=== PATIENT | male | born 1980 | race Hispanic/Latino ===

== ENCOUNTER 2016-11-18 05:12 | Inpatient (IN) | payer OTHER ==
[~2016-11-18] VITALS: Ht 172.7 cm; Wt 86.2 kg
[2016-11-18] VITALS (16 sets, daily range): BP systolic 95–134; BP diastolic 63–90
[~2016-11-18 05:12] MED LIST: AMOXICILLIN500 M1 PO; CYANOCOBALAM1000 MCG PO; ERYTHROMYC1 APPLICAT LEFT EYE; FOLIC ACID1 MG PO; MOTRIN800 MG PO; NAPROSYN500 MG PO; PERCOCET 5/31 TABLET PO; PRENATAL VITAM1 EA11 PO; Protonix PO; THERAGRAN1 TABLET PO; Thiamine,Vitamin B1 PO
[2016-11-18 05:54] LABS: BASE EXCESS 4.5 mEq/L (-3 to +3); BICARBONATE 28.4 mEq/L (22-26); CARBOXY HGB 3.9 % (0-5); COMMENTS - BLOOD GASES C+A+; DEVICE ROOM AIR; FI02 21 %; METHEMOGLOBIN 1.1 % (0-1.5); PCO2 39 mm Hg (35-45); PO2 80 mm Hg (80-100); SITE LR; TOTAL RESP RATE 16 resp/min; pH 7.47 (7.35-7.45)
[2016-11-18 05:56] LABS: EOSINOPHIL (%) 1.2 % (0-5); EOSINOPHIL COUNT 0.1 K/uL (0-0.3); IMMATURE GRANULOCYTE (%) 0.2 % (0.0-0.7); IMMATURE GRANULOCYTE COUNT 0.1 K/uL; LYMPHOCYTE COUNT 1.1 K/uL (1.0-2.8); MONOCYTE (%) 6.9 % (3-12); MONOCYTE COUNT 0.3 K/uL (0-0.8); NEUTROPHIL (%) 69.4 % (45-76); NEUTROPHIL COUNT 3.4 K/uL (1.8-6.4)
[2016-11-18 06:04] LABS: CHLORIDE 103 mEq/L (99-109); POTASSIUM 4.4 mEq/L (3.7-5.4); SODIUM 137 mEq/L (136-147)
[2016-11-18 06:07] LABS: GLUCOSE 110 mg/dL (70-99)
[2016-11-18 06:08] LABS: ANION GAP 13 MEQ/L (2-14)
[2016-11-18 06:09] LABS: TOTAL BILIRUBIN 12.2 mg/dL (0.0-1.0)
[2016-11-18 06:10] LABS: ALKALINE PHOSPHATASE 182 IU/L (3-129); SERUM ETHYL ALCOHOL 168 mg/dL
[2016-11-18 06:11] LABS: GFR ESTIMATE (CALCULATED) > 59 mL/min/; INTER. NORMALIZED RATIO 1.8; PTT 42.8 (25-32)
[2016-11-18 06:12] LABS: UREA NITROGEN (BUN) 8 mg/dL (9-23)
[2016-11-18 06:14] LABS: LIPASE 69 U/L (1.0-51.0)
[2016-11-18 06:17] LABS: TROP-I INTERPRETATION NEGATIVE; TROPONIN-I 0.01 ng/mL (0.0-0.30)
[2016-11-18 06:26] LABS: HEMATOCRIT 38.9 % (38.0-50.0); MCH 32.3 PG (29.0-34.0); MCHC 35.7 G/DL (30.0-36.0); MCV 90.5 FL (86-99); RBC DIS.WIDTH-CV 14.8 % (11.8-14.6); RBC DIS.WIDTH-SD 47.5 % (39-53); WHITE BLOOD COUNT 4.9 K/uL (4.1-10.2)
[2016-11-18 06:46] LABS: PLAT.SUFFICIENCY DECREASED
[2016-11-18 06:47] LABS: PLATELET COUNT 28 K/uL (156-360)
[2016-11-18] MEDS ORDERED: PRILOSEC20 MG PO (08:00)
[2016-11-18 08:50] LABS: TROP-I INTERPRETATION NEGATIVE; TROPONIN-I < 0.01 ng/mL (0.0-0.30)
[2016-11-18 19:41] LABS: HEMATOCRIT 39.5 % (38.0-50.0); MCV 92.9 FL (86-99)
[2016-11-19] VITALS (7 sets, daily range): BP systolic 100–128; BP diastolic 60–79
[2016-11-19 06:44] LABS: INTER. NORMALIZED RATIO 1.8; PROTHROMBIN TIME 18.5 (9.2-11.2)
[2016-11-19 06:47] LABS: TROP-I INTERPRETATION NEGATIVE; TROPONIN-I < 0.01 ng/mL (0.0-0.30)
[2016-11-19 06:49] LABS: ALKALINE PHOSPHATASE 108 IU/L (3-129); DIRECT BILIRUBIN 8.7 mg/dL (0.0-0.3); TOTAL BILIRUBIN 16.8 MG/DL (0.0-1.0)
[2016-11-19 06:51] LABS: HEMATOCRIT 35.1 % (38.0-50.0); MCH 33.2 PG (29.0-34.0); MCV 94.9 FL (86-99); RBC DIS.WIDTH-SD 51.7 % (39-53)
[2016-11-19 06:54] LABS: MEAN PLAT.VOLUME 12.7 uM^3 (9.0-12.4)
[2016-11-19 07:12] LABS: PLATELET COUNT 37 K/uL (156-360); WHITE BLOOD COUNT 2.4 K/uL (4.1-10.2)
[2016-11-19 20:16] LABS: HEMATOCRIT 33.6 % (38.0-50.0); MCV 94.6 FL (86-99)
[2016-11-20] VITALS (11 sets, daily range): BP systolic 107–118; BP diastolic 57–70
[2016-11-20 08:35] LABS: HEMATOCRIT 32.1 % (38.0-50.0); MCV 94.1 FL (86-99)
[2016-11-20 08:48] LABS: INTER. NORMALIZED RATIO 1.8; PROTHROMBIN TIME 18.7 (9.2-11.2); PTT 36.9 (25-32)
[2016-11-20 09:02] LABS: ALKALINE PHOSPHATASE 95 IU/L (3-129); ANION GAP 6 MEQ/L (2-14); CHLORIDE 102 MEQ/L (99-109); GFR ESTIMATE (CALCULATED) > 59 mL/min/; GLUCOSE 87 mg/dL (70-99); SAMPLE HEMOLYSIS CHECK 0; SAMPLE ICTERIC CHECK 3; SAMPLE LIPEMIA CHECK 0; SODIUM 133 MEQ/L (136-147); TOTAL BILIRUBIN 14.6 MG/DL (0.0-1.0); UREA NITROGEN (BUN) 11 mg/dL (9-23)
[2016-11-20 12:35] LABS: FIBRINOGEN 96 MG/DL (160-450)
[2016-11-21 03:04] VITALS: BP 112/61
[2016-11-21 07:03] LABS: ALKALINE PHOSPHATASE 106 IU/L (3-129); ANION GAP 6 MEQ/L (2-14); CHLORIDE 98 MEQ/L (99-109); GFR ESTIMATE (CALCULATED) > 59 mL/min/; GLUCOSE 69 mg/dL (70-99); POTASSIUM 3.5 MEQ/L (3.7-5.4); SAMPLE HEMOLYSIS CHECK 0; SAMPLE ICTERIC CHECK 2; SAMPLE LIPEMIA CHECK 0; SODIUM 136 MEQ/L (136-147); UREA NITROGEN (BUN) 9 mg/dL (9-23)
[2016-11-21 07:11] LABS: TOTAL BILIRUBIN 10.3 MG/DL (0.0-1.0)
[2016-11-21 07:23] LABS: EOSINOPHIL (%) 0.6 % (0-5); HEMATOCRIT 32.9 % (38.0-50.0); IMMATURE GRANULOCYTE (%) 0.3 % (0.0-0.7); LYMPHOCYTE COUNT 1.2 K/uL (1.0-2.8); MCH 32.9 PG (29.0-34.0); MCHC 34.7 G/DL (30.0-36.0); MCV 94.8 FL (86-99); MONOCYTE (%) 12.3 % (3-12); MONOCYTE COUNT 0.4 K/uL (0-0.8); NEUTROPHIL (%) 47.6 % (45-76); NEUTROPHIL COUNT 1.5 K/uL (1.8-6.4); RBC DIS.WIDTH-CV 15.5 % (11.8-14.6); RBC DIS.WIDTH-SD 53.4 % (39-53); RED BLOOD COUNT 3.47 M/uL (4.00-5.50)
[2016-11-21 07:27] LABS: WHITE BLOOD COUNT 3.2 K/uL (4.1-10.2)
[2016-11-21 07:36] LABS: PLAT.SUFFICIENCY DECREASED; PLATELET COUNT 31 K/uL (156-360)
[2016-11-21 08:54] VITALS: BP 121/69
[2016-11-21 12:42] VITALS: BP 120/77
[2016-11-21] MEDS ORDERED: PROTONIX40 MG PO (13:38)
[2016-11-21] MEDS ORDERED: THIAMINE HCL100 MG PO (13:38)
[2016-11-21] MEDS ORDERED: FOLIC ACID1 MG PO (13:38)
[2016-11-21] MEDS ORDERED: LACTULOSE10 GM/151 PO (13:39)
[2016-11-21] MEDS ORDERED: ATORVASTATIN CA40 MG PO (13:49)
[2016-11-21 16:47] VITALS: BP 122/87
== END 2016-11-21 16:48 | disposition home or self-care (01) | DRG 433 ==
LOC: EME 05:12 → 5SOUTH 07:36 → 4EAST 07:36 → EDOF 07:36 → 5SOUTH 10:44 → 4EAST 19:52
PROVIDERS: Emergency Medicine; Internal Medicine; Internal Medicine Gastroenterology
PROC: 30233R1 Transfusion of Nonautologous Platelets into Peripheral Vein, Percutaneous Approach (ICD-10-PCS; principal; 2016-11-18)
PROC: 30233K1 Transfusion of Nonautologous Frozen Plasma into Peripheral Vein, Percutaneous Approach (ICD-10-PCS; 2016-11-18)
PROC: 30233M1 Transfusion of Nonautologous Plasma Cryoprecipitate into Peripheral Vein, Percutaneous Approach (ICD-10-PCS; 2016-11-20)
DX: K70.30 Alcoholic cirrhosis of liver without ascites (principal); D68.4 Acquired coagulation factor deficiency; K92.0 Hematemesis; K92.1 Melena; K70.10 Alcoholic hepatitis without ascites; K76.6 Portal hypertension; E72.20 Disorder of urea cycle metabolism, unspecified; F10.20 Alcohol dependence, uncomplicated; D69.59 Other secondary thrombocytopenia; T80.89XA Other complications following infusion, transfusion and therapeutic injection, initial encounter; R21 Rash and other nonspecific skin eruption; I95.89 Other hypotension; R04.0 Epistaxis; K21.9 Gastro-esophageal reflux disease without esophagitis; G43.909 Migraine, unspecified, not intractable, without status migrainosus; F17.210 Nicotine dependence, cigarettes, uncomplicated; E66.9 Obesity, unspecified; Z68.28 Body mass index [BMI] 28.0-28.9, adult; Z87.11 Personal history of peptic ulcer disease
CPT/HCPCS: 36600; 74177; 80053; 80076; 82140; 82803; 83605; 83690; 84484; 85014; 85018; 85025; 85027; 85384; 85610; 85730; 86078; 86850; 86900; 86901; 86965; 93005; 99281; 99285; C9113; G0480; J0780; J1200; J2354; J2405; J2930; J3010; J3411; J3430; J7030; J7050; P9012; P9017; P9035; S0028

== ENCOUNTER 2016-12-30 18:33 | Inpatient (IN) | payer OTHER ==
[~2016-12-30] VITALS: Ht 172.7 cm; Wt 84.2 kg
[~2016-12-30 18:33] MED LIST changes: +ATORVASTATIN CA40 MG PO; +LACTULOSE10 GM/151 PO; +PRILOSEC20 MG PO; +PROTONIX40 MG PO; +THIAMINE HCL100 MG PO
[2016-12-30 19:28] LABS: HEMATOCRIT 35.3 % (38.0-50.0); MCH 32.6 PG (29.0-34.0); MCHC 34.6 G/DL (30.0-36.0); MCV 94.4 FL (86-99); RBC DIS.WIDTH-CV 15.4 % (11.8-14.6); RBC DIS.WIDTH-SD 50.6 % (39-53); RED BLOOD COUNT 3.74 M/uL (4.00-5.50); WHITE BLOOD COUNT 3.8 K/uL (4.1-10.2)
[2016-12-30 19:40] LABS: CHLORIDE 105 mEq/L (99-109); POTASSIUM 3.8 mEq/L (3.7-5.4); SODIUM 139 mEq/L (136-147)
[2016-12-30 19:42] LABS: GLUCOSE 153 mg/dL (70-99)
[2016-12-30 19:43] LABS: ANION GAP 9 MEQ/L (2-14)
[2016-12-30 19:44] LABS: INFLUENZA A VIRAL ANTIGEN NEGATIVE; INFLUENZA B VIRAL ANTIGEN NEGATIVE
[2016-12-30 19:44] LABS: TOTAL BILIRUBIN 13.9 mg/dL (0.0-1.0)
[2016-12-30 19:45] LABS: ALKALINE PHOSPHATASE 162 IU/L (3-129)
[2016-12-30 19:46] LABS: GFR ESTIMATE (CALCULATED) > 59 mL/min/
[2016-12-30 19:47] LABS: UREA NITROGEN (BUN) 8 mg/dL (9-23)
[2016-12-30 20:26] LABS: MEAN PLAT.VOLUME 11.9 uM^3 (9.0-12.4)
[2016-12-30 20:27] LABS: PLATELET COUNT 21 K/uL (156-360)
[2016-12-30 22:17] LABS: COLOR AMBER ((YELLOW))
[2016-12-30 22:18] LABS: SPECIFIC GRAVITY 1.015 (1.000-1.030)
[2016-12-30 22:21] LABS: ADD MIUA? YES
[2016-12-30 22:34] LABS: ICTOTEST POSITIVE
[2016-12-30 22:39] LABS: RED BLOOD CELLS 0-5 /HPF (0-5); WHITE BLOOD CELLS 0-5 /HPF (0-5)
[2016-12-30 22:40] LABS: BACTERIA 1+ /HPF; EPITHELIAL CELLS 1+ /HPF; MUCUS 4+ /LPF; UCUL ADDED? NO
[2016-12-30 23:03] LABS: INTER. NORMALIZED RATIO 2.4; PROTHROMBIN TIME 25.6 (9.2-11.2); PTT 54.4 (25-32)
[2016-12-31] VITALS (8 sets, daily range): BP systolic 99–128; BP diastolic 54–69
[2016-12-31 06:21] LABS: CHLORIDE 109 mEq/L (99-109); POTASSIUM 3.7 mEq/L (3.7-5.4); SODIUM 140 mEq/L (136-147)
[2016-12-31 06:25] LABS: ANION GAP 6 MEQ/L (2-14); GLUCOSE 114 mg/dL (70-99); INTER. NORMALIZED RATIO 2.7; PROTHROMBIN TIME 28.2 (9.2-11.2); TOTAL BILIRUBIN 13.4 mg/dL (0.0-1.0)
[2016-12-31 06:27] LABS: ALKALINE PHOSPHATASE 127 IU/L (3-129); GFR ESTIMATE (CALCULATED) > 59 mL/min/
[2016-12-31 06:28] LABS: UREA NITROGEN (BUN) 8 mg/dL (9-23)
[2016-12-31 06:29] LABS: DIRECT BILIRUBIN 6.8 mg/dL (0.0-0.3)
[2016-12-31 06:45] LABS: HEMATOCRIT 31.6 % (38.0-50.0); MCH 32.9 PG (29.0-34.0); MCHC 35.1 G/DL (30.0-36.0); MCV 93.8 FL (86-99); RBC DIS.WIDTH-CV 15.6 % (11.8-14.6); RBC DIS.WIDTH-SD 51.3 % (39-53); RED BLOOD COUNT 3.37 M/uL (4.00-5.50)
[2016-12-31 06:46] LABS: WHITE BLOOD COUNT 2.5 K/uL (4.1-10.2)
[2016-12-31 07:16] LABS: PLATELET COUNT 18 K/uL (156-360)
[2016-12-31 12:28] LABS: HEMATOCRIT 32.1 % (38.0-50.0); MCH 32.6 PG (29.0-34.0); MCHC 34.6 G/DL (30.0-36.0); MCV 94.1 FL (86-99); RBC DIS.WIDTH-CV 15.3 % (11.8-14.6); RBC DIS.WIDTH-SD 49.8 % (39-53); RED BLOOD COUNT 3.41 M/uL (4.00-5.50); WHITE BLOOD COUNT 2.2 K/uL (4.1-10.2)
[2016-12-31 12:37] LABS: INTER. NORMALIZED RATIO 2.7; PROTHROMBIN TIME 27.9 (9.2-11.2); PTT 62.2 (25-32)
[2016-12-31 14:21] LABS: MEAN PLAT.VOLUME 12.6 uM^3 (9.0-12.4); PLATELET COUNT 16 K/uL (156-360)
[2016-12-31 21:12] LABS: C DIFF TOXIN POSITIVE (NEGATIVE)
[2016-12-31 21:14] LABS: PROBE CHECK PASS
[2017-01-01] VITALS (14 sets, daily range): BP systolic 102–132; BP diastolic 61–72
[2017-01-01 07:49] LABS: INTER. NORMALIZED RATIO 2.4; PROTHROMBIN TIME 24.8 (9.2-11.2); PTT 55.3 (25-32)
[2017-01-01 08:01] LABS: ALKALINE PHOSPHATASE 101 IU/L (3-129); ANION GAP 6 MEQ/L (2-14); CHLORIDE 106 MEQ/L (99-109); GFR ESTIMATE (CALCULATED) > 59 mL/min/; POTASSIUM 3.5 MEQ/L (3.7-5.4); SAMPLE HEMOLYSIS CHECK 0; SAMPLE ICTERIC CHECK 2; SAMPLE LIPEMIA CHECK 0; SODIUM 138 MEQ/L (136-147); TOTAL BILIRUBIN 10.9 MG/DL (0.0-1.0); UREA NITROGEN (BUN) 8 mg/dL (9-23)
[2017-01-01 08:02] LABS: GLUCOSE 76 mg/dL (70-99)
[2017-01-01 08:09] LABS: EOSINOPHIL (%) 2.3 % (0-5); EOSINOPHIL COUNT 0.1 K/uL (0-0.3); HEMATOCRIT 31.4 % (38.0-50.0); IMMATURE GRANULOCYTE (%) 0.3 % (0.0-0.7); LYMPHOCYTE COUNT 1.1 K/uL (1.0-2.8); MCH 33.3 PG (29.0-34.0); MCV 95.2 FL (86-99); MONOCYTE (%) 6.9 % (3-12); MONOCYTE COUNT 0.2 K/uL (0-0.8); NEUTROPHIL COUNT 1.6 K/uL (1.8-6.4); RBC DIS.WIDTH-CV 15.5 % (11.8-14.6); RBC DIS.WIDTH-SD 53.9 % (39-53)
[2017-01-01 08:23] LABS: PLATELET COUNT 39 K/uL (156-360)
[2017-01-01 08:45] LABS: PLAT.SUFFICIENCY DECREASED; USER ID TLW
[2017-01-01 13:58] LABS: HEMATOCRIT 32.4 % (38.0-50.0); MCH 32.1 PG (29.0-34.0); MCV 94.5 FL (86-99); RBC DIS.WIDTH-CV 15.5 % (11.8-14.6); RBC DIS.WIDTH-SD 53.4 % (39-53); RED BLOOD COUNT 3.43 M/uL (4.00-5.50); WHITE BLOOD COUNT 2.4 K/uL (4.1-10.2)
[2017-01-01 14:03] LABS: INTER. NORMALIZED RATIO 2.1; PROTHROMBIN TIME 21.8 (9.2-11.2); PTT 48.1 (25-32)
[2017-01-01 14:21] LABS: MEAN PLAT.VOLUME 11.1 uM^3 (9.0-12.4); PLATELET COUNT 39 K/uL (156-360)
[2017-01-01 22:53] LABS: ADD MIUA? YES; BILIRUBIN SMALL; BLOOD NEGATIVE; COLOR AMBER ((YELLOW)); GLUCOSE (STRIP) NEGATIVE; KETONES 5; LEUKOCYTES NEGATIVE; NITRITE NEGATIVE; PROTEIN (STRIP) NEGATIVE; SPECIFIC GRAVITY 1.017 (1.000-1.030)
[2017-01-01 22:57] LABS: BACTERIA RARE /HPF; EPITHELIAL CELLS NONE SEEN /HPF; MUCUS TRACE /LPF; RED BLOOD CELLS 0-5 /HPF (0-5); WHITE BLOOD CELLS 0-5 /HPF (0-5)
[2017-01-02 03:59] VITALS: BP 114/67
[2017-01-02 07:40] LABS: ALKALINE PHOSPHATASE 114 IU/L (3-129); ANION GAP 6 MEQ/L (2-14); CHLORIDE 103 MEQ/L (99-109); GFR ESTIMATE (CALCULATED) > 59 mL/min/; SAMPLE HEMOLYSIS CHECK 0; SAMPLE ICTERIC CHECK 2; SAMPLE LIPEMIA CHECK 0; SODIUM 136 MEQ/L (136-147); UREA NITROGEN (BUN) 7 mg/dL (9-23)
[2017-01-02 07:46] VITALS: BP 103/66
[2017-01-02 07:47] LABS: GLUCOSE 138 mg/dL (70-99); POTASSIUM 4.3 MEQ/L (3.7-5.4); TOTAL BILIRUBIN 8.3 MG/DL (0.0-1.0)
[2017-01-02 07:58] LABS: EOSINOPHIL (%) 0 % (0-5); IMMATURE GRANULOCYTE (%) 0.8 % (0.0-0.7); LYMPHOCYTE COUNT 0.4 K/uL (1.0-2.8); MCH 32.1 PG (29.0-34.0); MCHC 33.8 G/DL (30.0-36.0); MONOCYTE (%) 2.3 % (3-12); NEUTROPHIL (%) 67.4 % (45-76); NEUTROPHIL COUNT 0.9 K/uL (1.8-6.4); RBC DIS.WIDTH-CV 15.1 % (11.8-14.6); RBC DIS.WIDTH-SD 52.4 % (39-53); RED BLOOD COUNT 3.58 M/uL (4.00-5.50)
[2017-01-02 08:01] LABS: WHITE BLOOD COUNT 1.3 K/uL (4.1-10.2)
[2017-01-02 08:58] LABS: MEAN PLAT.VOLUME 10.8 uM^3 (9.0-12.4); PLAT.SUFFICIENCY DECREASED; PLATELET COUNT 43 K/uL (156-360); USER ID STC
[2017-01-02 09:33] LABS: PROTHROMBIN TIME 20.4 (9.2-11.2); PTT 40.9 (25-32)
[2017-01-02 12:18] VITALS: BP 116/67
[2017-01-02 16:10] VITALS: BP 111/67
[2017-01-02 19:44] VITALS: BP 108/71
== END 2017-01-02 23:59 | disposition short-term general hospital (02) | DRG 872 ==
LOC: EME 18:33 → EDOF 23:34 → 4EAST 23:34 → EDOF 12-31 13:36 → 4EAST 12-31 18:37
PROVIDERS: Anesthesiology; Emergency Medicine; Family Medicine; Hospitalist; Internal Medicine; Student in an Organized Health Care Education/Training Program
PROC: 30233R1 Transfusion of Nonautologous Platelets into Peripheral Vein, Percutaneous Approach (ICD-10-PCS; 2016-12-31)
PROC: 0F9430Z Drainage of Gallbladder with Drainage Device, Percutaneous Approach (ICD-10-PCS; principal; 2017-01-01)
PROC: 30233K1 Transfusion of Nonautologous Frozen Plasma into Peripheral Vein, Percutaneous Approach (ICD-10-PCS; 2017-01-01)
DX: A41.9 Sepsis, unspecified organism (principal); K80.00 Calculus of gallbladder with acute cholecystitis without obstruction; A04.7 Enterocolitis due to Clostridium difficile; N39.0 Urinary tract infection, site not specified; D61.818 Other pancytopenia; D68.8 Other specified coagulation defects; T80.61XA Other serum reaction due to administration of blood and blood products, initial encounter; N20.0 Calculus of kidney; K70.30 Alcoholic cirrhosis of liver without ascites; K70.10 Alcoholic hepatitis without ascites; K70.40 Alcoholic hepatic failure without coma; F10.20 Alcohol dependence, uncomplicated; K21.9 Gastro-esophageal reflux disease without esophagitis; K27.9 Peptic ulcer, site unspecified, unspecified as acute or chronic, without hemorrhage or perforation; F17.200 Nicotine dependence, unspecified, uncomplicated
CPT/HCPCS: 49406; 74176; 76705; 80048; 80053; 80076; 81003; 82140; 83605; 85025; 85027; 85610; 85730; 86850; 86860; 86870; 86880; 86900; 86901; 87040; 87070; 87075; 87086; 87205; 87493; 87502; 99281; 99285; C1769; C9113; J0692; J0696; J1200; J1885; J2405; J2930; J3010; J3411; J3475; J7030; J7040; J7050; P9017; P9035; S0028; S0030